=== PATIENT | male | born 1950 | race Caucasian/White ===

== ENCOUNTER 2019-11-29 12:25 | Outpatient (CLI) | payer OTHER ==
[2019-11-29] MEDS ORDERED: ROPivacaine/PF 0.2%, 10 ML ONE (13:38)
[2019-11-29] MEDS ORDERED: LIDOCAINE-MPF 1%, 5ML ONE (13:38)
[2019-11-29] MEDS ORDERED: SODIUM BICARBONATE 4.2%, 5ML ONE (13:39)
[2019-11-29] MEDS ORDERED: OMNIPAQUE 300 MG/ML, 10ML VIAL ONE (14:00)
[2019-11-29] MEDS ORDERED: GADOTERATE 5 MMOL/10 ML VIAL ONE (14:00)
[2019-11-29] MEDS ORDERED: GADOTERATE 2.5 MMOL/5 ML VIAL ONE (14:22)
== END 2019-11-29 23:59 | disposition home or self-care (01) ==
LOC: RAD 12:25
PROVIDERS: ATTEND Radiology Diagnostic Radiology
DX: M75.121 Complete rotator cuff tear or rupture of right shoulder, not specified as traumatic (principal); M24.111 Other articular cartilage disorders, right shoulder; M25.511 Pain in right shoulder
CPT/HCPCS: 23350; 73040; 73222; A9575; Q9967; J2795